=== PATIENT | male | born 1985 | race Two or more races ===

== ENCOUNTER 2021-07-21 07:06 | Emergency (ER) | payer OTHER, BC ==
--- OUTSIDE RECORDS SUMMARY | 2021-07-21 07:09 | XMS REPORT | Continuity of Care Document ---
:1985 Author Organization [facility] Address [address] [place] [address] Care Team Providers Name Role Phone JENNIFER FLANAGAN Attending Clinician Unavailable NANDO ALLEN Attending Clinician Unavailable Problems This patient has no known problems. Allergies, Adverse Reactions, Alerts This patient has no known allergies or adverse reactions. Medications This patient has no known medications. Procedures This patient has no known procedures. Encounters Start End Encounter Admission Attending Care Care Encounter Source Date/Time Date/Time Type Type Clinicians Facility Department ID 2021-07-10 2021-07-10 Outpatient SITTER, [facility] [id number] [place] 00:00:00 00:00:00 JENNIFER [address] 2020-10-10 2020-10-10 Outpatient SITTER, [facility] [id number] [place] 00:00:00 00:00:00 JENNIFER [address] 2020-10-02 2020-10-02 Outpatient SITTER, [facility] [id number] [place] 00:00:00 00:00:00 JENNIFER [address] 2020-10-01 2020-10-01 Outpatient NANDO ALLEN [facility] [id number] [place] 00:00:00 00:00:[address] 2020-09-25 2020-09-25 Outpatient SITTER, [facility] [id number] [place] 00:00:00 00:00:00 JENNIFER [address] 2020-09-25 2020-09-25 Outpatient NANDO ALLEN [facility] [id number] [place] 00:00:00 00:00:[address] 2020-09-25 2020-09-25 Outpatient SITTER, [facility] [id number] [place] 00:00:00 00:00:00 JENNIFER [address] 2020-08-29 2020-08-29 Outpatient SITTER, [facility] [id number] [place] 00:00:00 00:00:00 JENNIFER [address] 2020-06-06 2020-06-06 Outpatient SITTER, [facility] [id number] [place] 00:00:00 00:00:00 JENNIFER [address] 2020-05-29 2020-05-29 Outpatient SITTER, [facility] [id number] [place] 00:00:00 00:00:00 JENNIFER [address] 2020-05-22 2020-05-22 Outpatient SITTER, [facility] [id number] [place] 00:00:00 00:00:00 JENNIFER [address] 2020-05-20 2020-05-20 Outpatient NANDO ALLEN [facility] [id number] [place] 00:00:00 00:00:[address] 2020-05-20 2020-05-20 Outpatient NANDO ALLEN [facility] [id number] [place] 00:00:00 00:00:[address] 2020-04-25 2020-04-25 Outpatient SITTER, [facility] [id number] [place] 00:00:00 00:00:00 JENNIFER [address] 2020-04-25 2020-04-25 Outpatient SITTER, [facility] [id number] [place] 00:00:00 00:00:00 JENNIFER [address] Results This patient has no known results.
[2021-07-21 07:54] LABS: Absolute Lymphocytes (CBC) 1.9 K/uL (0.7-4.9); Hematocrit 42.7 % (39.6-49.0); Lymphocytes % 39.8 % (15.3-44.8); MPV 7.5 fL (7.6-11.3); RBC Red Blood Cell Count 4.82 M/uL (4.33-5.43)
[2021-07-21 08:09] LABS: Potassium 3.9 mmol/L (3.5-5.1)
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
[2021-07-21 09:49] VITALS: BP 115/97; O2SAT 98
== END 2021-07-21 09:27 | disposition home or self-care (01) ==
LOC: ER 07:06
DX: R07.89 Other chest pain (principal); S00.83XA Contusion of other part of head, initial encounter; V59.40XA Driver of pick-up truck or van injured in collision with unspecified motor vehicles in traffic accident, initial encounter; Z88.1 Allergy status to other antibiotic agents
CPT/HCPCS: 85025; 80048; 36415; 70450; 72125; 71260; 74177; 70551; 99285; Q9967